=== PATIENT | male | born 2005 | race Caucasian/White ===

== ENCOUNTER 2025-06-11 22:05 | Inpatient (IN) | payer OTHER ==
[~2025-06-11] VITALS: Ht 188 cm; Wt 77.1 kg
[~2025-06-11 22:05] MED LIST: AMOX50SU PO; AZIT100SU PO; GUAI100SY PO
[2025-06-11 23:49] LABS: BASOPHILS ABSOLUTE AUTO 0.04 K/mm3 (0.00-0.23); BASOPHILS PERCENT AUTO 0 % (0-2); EOSINOPHILS ABSOLUTE AUTO 0.08 K/mm3 (0.00-0.68); EOSINOPHILS PERCENT AUTO 1 % (0-6); Hematocrit 42.9 % (37.0-53.0); Hemoglobin 15.2 g/dL (13.5-17.5); IMMATURE GRAN ABSOLUTE AUTO 0.04 K/mm3 (0.00-0.10); IMMATURE GRAN PERCENT AUTO 0 % (0-1); LYMPHOCYTES ABSOLUTE AUTO 1.66 K/mm3 (0.84-5.20); LYMPHOCYTES PERCENT AUTO 11 % (21-46); MONOCYTES ABSOLUTE AUTO 1.58 K/mm3 (0.16-1.47); MONOCYTES PERCENT AUTO 10 % (4-13); Mean Corpuscular HGB Conc 35.4 g/dL (31.5-36.5); Mean Corpuscular Volume 88 fL (80-100); NEUTROPHILS ABSOLUTE AUTO 11.81 K/mm3 (1.96-9.15); NEUTROPHILS PERCENT AUTO 78 % (41-73); NRBC ABSOLUTE 0.00 K/mm3 (0.00-0.02); NRBC Auto 0.0 /100 WBC (0.0-0.2); Platelet Count 330 K/mm3 (150-400); RDW Coefficient Variation 11.9 % (11.7-14.2); RDW Standard Deviation 38.8 fL (35.1-46.3)
[2025-06-12] VITALS (14 sets, daily range): BP systolic 91–135; BP diastolic 44–82
[2025-06-12 00:18] LABS: Alanine Aminotransfer (ALT/SGP 20.0 U/L (12-78); Albumin, Blood 4.0 g/dL (3.4-5.0); Albumin/Globulin Ratio 0.9 (0.8-1.8); Anion Gap 9.0 mmol/L (3-11); Aspartate Aminotrans (AST/SGOT 15.0 U/L (12-37); Bilirubin, Total 0.4 mg/dL (0.1-1.0); Blood Urea Nitrogen 11.0 mg/dL (8-24); CO2, Blood 25.0 mmol/L (21-32); Calcium, Blood 9.4 mg/dL (8.5-10.1); Chloride, Blood 106.0 mmol/L (98-108); Creatinine, Blood 0.76 mg/dL (0.60-1.20); Globulin, Blood 4.5 g/dL (2.2-4.0); Glucose, Blood 116.0 mg/dL (70-99); Potassium, Blood 3.3 mmol/L (3.5-5.5); Sodium, Blood 137.0 mmol/L (136-145); Total Protein, Blood 8.5 g/dL (6.4-8.2)
[2025-06-12 00:19] LABS: C-Reactive Protein, High Sens. 107.0 mg/L (0.000-3.000)
[2025-06-12] MEDS ORDERED: Morphine Sulfate 4 MG/1 ML Injection IV ONE (01:45)
[2025-06-12] MEDS ORDERED: Vancomycin (Pharmacy Consult) IV PRN (02:40)
[2025-06-12] MEDS ORDERED: CefTRIAXone Sodium 2,000 MG in NS 100 ML IV ONE (02:40)
[2025-06-12] MEDS ORDERED: Ondansetron HCl 2 MG / ML 2ML Vial IV PRN ×2 (03:10→08:45)
[2025-06-12] MEDS ORDERED: Morphine Sulfate 4 MG/1 ML Injection IV PRN ×3 (03:15→14:15)
[2025-06-12] MEDS ORDERED: FLU VACC TS2025-26(6MOS UP)/PF 45 MCG/0.5 ML SYRINGE IM SCH (03:15)
[2025-06-12] MEDS ORDERED: Vancomycin (Pharmacy Consult) IV SCH (03:15)
[2025-06-12] MEDS ORDERED: Naloxone HCl 0.4MG / ML 1ML Vial IV PRN (03:15)
[2025-06-12] MEDS ORDERED: NS KCL 40 mEq 1,000 ML IV SCH (06:00)
[2025-06-12] MEDS ORDERED: FentaNYL Citrate 50 MCG/ML 2 ML Injection ONE (07:29)
[2025-06-12] MEDS ORDERED: Midazolam HCl 1MG / ML 2ML Vial ONE (07:29)
[2025-06-12 07:48] LABS: BASOPHILS ABSOLUTE AUTO 0.03 K/mm3 (0.00-0.23); BASOPHILS PERCENT AUTO 0 % (0-2); EOSINOPHILS ABSOLUTE AUTO 0.02 K/mm3 (0.00-0.68); EOSINOPHILS PERCENT AUTO 0 % (0-6); Hematocrit 37.0 % (37.0-53.0); Hemoglobin 12.9 g/dL (13.5-17.5); IMMATURE GRAN ABSOLUTE AUTO 0.04 K/mm3 (0.00-0.10); IMMATURE GRAN PERCENT AUTO 0 % (0-1); LYMPHOCYTES ABSOLUTE AUTO 1.76 K/mm3 (0.84-5.20); LYMPHOCYTES PERCENT AUTO 13 % (21-46); MONOCYTES ABSOLUTE AUTO 1.30 K/mm3 (0.16-1.47); MONOCYTES PERCENT AUTO 10 % (4-13); Mean Corpuscular HGB Conc 34.9 g/dL (31.5-36.5); Mean Corpuscular Volume 90 fL (80-100); NEUTROPHILS ABSOLUTE AUTO 10.01 K/mm3 (1.96-9.15); NEUTROPHILS PERCENT AUTO 76 % (41-73); NRBC ABSOLUTE 0.00 K/mm3 (0.00-0.02); NRBC Auto 0.0 /100 WBC (0.0-0.2); Platelet Count 276 K/mm3 (150-400); RDW Coefficient Variation 12.0 % (11.7-14.2); RDW Standard Deviation 39.5 fL (35.1-46.3)
[2025-06-12] MEDS ORDERED: Bupivacaine 0.5% HCl 5 MG/ML 30MLVIAL ONE (08:02)
[2025-06-12] MEDS ORDERED: EPINEPhrine HCl 1 MG / ML 30ML Vial ONE (08:02)
[2025-06-12 08:03] LABS: Prothrombin Time Results 11.2 Sec (9.7-11.5)
[2025-06-12 08:09] LABS: Alanine Aminotransfer (ALT/SGP 17.0 U/L (12-78); Albumin, Blood 3.2 g/dL (3.4-5.0); Albumin/Globulin Ratio 0.9 (0.8-1.8); Anion Gap 9.0 mmol/L (3-11); Aspartate Aminotrans (AST/SGOT 14.0 U/L (12-37); Bilirubin, Total 0.6 mg/dL (0.1-1.0); Blood Urea Nitrogen 6.0 mg/dL (8-24); CO2, Blood 26.0 mmol/L (21-32); Calcium, Blood 8.9 mg/dL (8.5-10.1); Chloride, Blood 106.0 mmol/L (98-108); Creatinine, Blood 0.79 mg/dL (0.60-1.20); Globulin, Blood 3.7 g/dL (2.2-4.0); Glucose, Blood 110.0 mg/dL (70-99); Magnesium, Blood 1.8 mg/dL (1.6-2.4); Potassium, Blood 3.5 mmol/L (3.5-5.5); Sodium, Blood 137.0 mmol/L (136-145); Total Protein, Blood 6.9 g/dL (6.4-8.2)
[2025-06-12] MEDS ORDERED: Ondansetron HCl 2 MG / ML 2ML Vial ONE (08:34)
[2025-06-12] MEDS ORDERED: Dexamethasone Sod Phos 10 MG/ML 1ML VIAL ONE (08:34)
[2025-06-12] MEDS ORDERED: FentaNYL Citrate 50 MCG/ML 2 ML Injection IV PRN ×2 (08:45)
[2025-06-12] MEDS ORDERED: HYDROmorphone HCl/Pf 1MG SYR IV PRN ×2 (08:45)
[2025-06-12] MEDS ORDERED: Ketorolac Tromethamine 30mg Vial ONE (08:45)
[2025-06-12] MEDS ORDERED: Phenylephrine HCl 100 MCG/ML-NS 10MLSYR (1MG/10ML) ONE (08:46)
[2025-06-12] MEDS ORDERED: Lactobacil 2-S.Thermo-Bifido 1 1 Cap PO SCH (09:00)
[2025-06-12] MEDS ORDERED: NS 250 ML IV PRN (12:00)
--- NOTE | 2025-06-12 18:41 | NUR ---
SHIFT SUMMARY: PATIENT HAD I&D DONE TO R KNEE TODAY BY DR. WETZEL (ORTHO), SENSATION INTACT, ALLYN WRAP DRESSING C/D/I. PATIENT MEDICATED FOR PAIN PER EMAR c GOOD EFFECT. PATIENT HAS GOOD APPETITE, CONTINENT OF BLADDER AND USES URINAL. PATIENT RECEIVED IV ABX PER ORDER. VITAL SIGNS REVIEWED. PATIENT A/OX4, PLEASANT AND COOPERATIVE c CARE, CALLS APPROPRIATELY AND MAKE NEEDS KNOWN. BED IN LOWEST POSITION. CALL LIGHT IN REACH.
[2025-06-13 03:05] LABS: BASOPHILS ABSOLUTE AUTO 0.03 K/mm3 (0.00-0.23); BASOPHILS PERCENT AUTO 0 % (0-2); EOSINOPHILS ABSOLUTE AUTO 0.05 K/mm3 (0.00-0.68); EOSINOPHILS PERCENT AUTO 0 % (0-6); Hematocrit 34.6 % (37.0-53.0); Hemoglobin 12.0 g/dL (13.5-17.5); IMMATURE GRAN ABSOLUTE AUTO 0.04 K/mm3 (0.00-0.10); IMMATURE GRAN PERCENT AUTO 0 % (0-1); LYMPHOCYTES ABSOLUTE AUTO 1.90 K/mm3 (0.84-5.20); LYMPHOCYTES PERCENT AUTO 16 % (21-46); MONOCYTES ABSOLUTE AUTO 1.15 K/mm3 (0.16-1.47); MONOCYTES PERCENT AUTO 10 % (4-13); Mean Corpuscular HGB Conc 34.7 g/dL (31.5-36.5); Mean Corpuscular Volume 90 fL (80-100); NEUTROPHILS ABSOLUTE AUTO 8.82 K/mm3 (1.96-9.15); NEUTROPHILS PERCENT AUTO 74 % (41-73); NRBC ABSOLUTE 0.00 K/mm3 (0.00-0.02); NRBC Auto 0.0 /100 WBC (0.0-0.2); Platelet Count 240 K/mm3 (150-400); RDW Coefficient Variation 11.9 % (11.7-14.2); RDW Standard Deviation 39.0 fL (35.1-46.3)
[2025-06-13 03:10] VITALS: BP 114/65
[2025-06-13 03:30] LABS: Alanine Aminotransfer (ALT/SGP 15 U/L (12-78); Albumin, Blood 2.9 g/dL (3.4-5.0); Albumin/Globulin Ratio 0.8 (0.8-1.8); Anion Gap 7 mmol/L (3-11); Aspartate Aminotrans (AST/SGOT 10 U/L (12-37); Bilirubin, Total 0.4 mg/dL (0.1-1.0); Blood Urea Nitrogen 6 mg/dL (8-24); CO2, Blood 27 mmol/L (21-32); Calcium, Blood 8.7 mg/dL (8.5-10.1); Chloride, Blood 105 mmol/L (98-108); Creatinine, Blood 0.60 mg/dL (0.60-1.20); Globulin, Blood 3.7 g/dL (2.2-4.0); Glucose, Blood 111 mg/dL (70-99); Potassium, Blood 4.0 mmol/L (3.5-5.5); Sodium, Blood 135 mmol/L (136-145); Total Protein, Blood 6.6 g/dL (6.4-8.2); Vancomycin, Trough 11.5 ug/mL (5.0-10.0)
--- NOTE | 2025-06-13 06:23 | NUR ---
SHIFT SUMMARY: PT AOX4, IND WITH THE URINAL, CALLS APPROPRAITELY AND ABLE TO MAKE NEEDS KNOWN. PT COMPLAINTS A LOT OF PAIN, MEDICATED PER EMR. PT TOLERATING MEDICATIONS WELL. VERY ANXIOUS ABOUT LOOSING LEG/ NOT BEING ABLE TO GO TO WORK. EDUCATED A BIT ON CONDITION AND SEEMS TO BE DOING BETTER. NO ACUTE EVENTS OVERNIGHT. PT IN BED RESTING, BED IN LOWEST POSITION, CALL LIGHT IN REACH. CONTINUING CARE.
[2025-06-13 07:25] VITALS: BP 119/88
[2025-06-13] MEDS ORDERED: CefTRIAXone Sodium 2,000 MG in NS 100 ML IV SCH (09:00)
[2025-06-13 15:27] VITALS: BP 133/64
--- NOTE | 2025-06-13 17:52 | NUR ---
PT PAIN BETTER THIS AM. INCREASED THIS AFT. DR STARTED DILAUDID, STARTED 1 MG PO. PT STATES NOT MUCH EFFECT. WILL UP TO [address] ORDER. GIRLFRIEND IN TO SEE TODAY. ALSO MOTHER IN TO SEE TODAY. VERY MIN SMALL BLOOD SPOT ON SIDE KNEE. ICED FOR PAIN RELEIF. PT UP TO BATHROOM WITH FWW. KAUR WELL. RT LEG STILL RED AROUND KNEE AREA. SOME SWELLING, NOT MUCH CHANGE NOTED THIS SHIFT. NO OTHER NEW CONCERNS NOTED. BED IN LOW POSITIION, CALL LITE IN REACH, CALLS APPROP
[2025-06-13 19:55] VITALS: BP 127/52
[2025-06-14 03:11] LABS: BASOPHILS ABSOLUTE AUTO 0.05 K/mm3 (0.00-0.23); BASOPHILS PERCENT AUTO 1 % (0-2); EOSINOPHILS ABSOLUTE AUTO 0.12 K/mm3 (0.00-0.68); EOSINOPHILS PERCENT AUTO 1 % (0-6); Hematocrit 39.1 % (37.0-53.0); Hemoglobin 13.5 g/dL (13.5-17.5); IMMATURE GRAN ABSOLUTE AUTO 0.05 K/mm3 (0.00-0.10); IMMATURE GRAN PERCENT AUTO 1 % (0-1); LYMPHOCYTES ABSOLUTE AUTO 2.20 K/mm3 (0.84-5.20); LYMPHOCYTES PERCENT AUTO 21 % (21-46); MONOCYTES ABSOLUTE AUTO 0.99 K/mm3 (0.16-1.47); MONOCYTES PERCENT AUTO 9 % (4-13); Mean Corpuscular HGB Conc 34.5 g/dL (31.5-36.5); Mean Corpuscular Volume 90 fL (80-100); NEUTROPHILS ABSOLUTE AUTO 7.18 K/mm3 (1.96-9.15); NEUTROPHILS PERCENT AUTO 68 % (41-73); NRBC ABSOLUTE 0.00 K/mm3 (0.00-0.02); NRBC Auto 0.0 /100 WBC (0.0-0.2); Platelet Count 297 K/mm3 (150-400); RDW Coefficient Variation 11.8 % (11.7-14.2); RDW Standard Deviation 39.1 fL (35.1-46.3)
[2025-06-14 03:25] VITALS: BP 138/83
[2025-06-14 03:32] LABS: Alanine Aminotransfer (ALT/SGP 20 U/L (12-78); Albumin, Blood 3.1 g/dL (3.4-5.0); Albumin/Globulin Ratio 0.7 (0.8-1.8); Anion Gap 8 mmol/L (3-11); Aspartate Aminotrans (AST/SGOT 17 U/L (12-37); Bilirubin, Total 0.3 mg/dL (0.1-1.0); Blood Urea Nitrogen 7 mg/dL (8-24); CO2, Blood 26 mmol/L (21-32); Calcium, Blood 9.2 mg/dL (8.5-10.1); Chloride, Blood 104 mmol/L (98-108); Creatinine, Blood 0.73 mg/dL (0.60-1.20); Globulin, Blood 4.3 g/dL (2.2-4.0); Glucose, Blood 88 mg/dL (70-99); Potassium, Blood 4.1 mmol/L (3.5-5.5); Sodium, Blood 134 mmol/L (136-145); Total Protein, Blood 7.4 g/dL (6.4-8.2); Vancomycin, Trough 12.7 ug/mL (5.0-10.0)
--- NOTE | 2025-06-14 05:38 | NUR ---
SHIFT SUMMARY: PT AOX4, SBA/1PA WITH FWW TO THE BATHROOM. IS ABLE TO MOVE THE LEG TODAY, STATES BIG IMPROVEMENT IN PAIN MANAGEMENT WITH OXY AND TYLENOL GIVEN AT THE SAME TIME. NEEDED THE MORPHINE ONLY FOR SOME BREAKTHROUGH PAIN AFTER AMBULATING TO THE BATHROOM. PT TOLERATING MEDICATIONS WELL. NO ACUTE OVERNIGHT EVENTS. EAGER TO GO HOME AND ANXIOUS ABOUT PROGNOSIS DESPITE EDUCATION. STILL PLEASANT AND COOPERATIVE IN CARE. PT IN BED RESTING, BED IN LOWEST POSITION, CALL LIGHT IN REACH. CONTINUING CARE.
[2025-06-14] MEDS ORDERED: MONDOXYNE NL100 MG PO (09:29)
[2025-06-14] MEDS ORDERED: CEPH500 PO (09:29)
[2025-06-14] MEDS ORDERED: MASOPHEN325 M3 PO (13:38)
[2025-06-14] MEDS ORDERED: OXYC5 PO (13:39)
[2025-06-14] MEDS ORDERED: IBUP800 PO (13:39)
[2025-06-14] MEDS ORDERED: SULTRIDS PO (13:42)
--- NOTE | 2025-06-14 14:30 | NUR ---
SHIFT SUMMARY AND DISCHARGE PATIENT ALERT AND INTERACTIVE. PATIENT INDEPENDENT AT BEDSIDE. USING URINAL TO VOID. PATIENT MEDICATED FOR PAIN PER NOV. WOUND CARE PROVIDED TO R KNEE WOUND. PATIENT EDUCATED ON WOUND CARE AND WHAT TO REPORT TO PROVIDERS. DISCHARGE INSTRUCTIONS REVIEWED WITH PATIENT. WALKER DELIVERED PRIOR TO DISCHARGE AND SENT HOME WITH PATIENT. ROOM CHECK DONE PRIOR TO DISCHARGE AND BELONGINGS SENT HOME WITH PATIENT. HARD SCRIPT FOR PAIN MEDS IN DISCHARGE FOLDER AND SHOWN TO PATIENT.
== END 2025-06-14 15:30 | disposition home or self-care (01) | DRG 854 ==
LOC: ER 22:05 → MEDS 06-12 03:03 → ERHOLD 06-12 03:03 → MEDS 06-12 10:17
PROVIDERS: Orthopaedic Surgery; Student in an Organized Health Care Education/Training Program; ADMIT Student in an Organized Health Care Education/Training Program
PROC: 0S9C3ZZ Drainage of Right Knee Joint, Percutaneous Approach (ICD-10-PCS; 2025-06-12)
PROC: 3E03329 Introduction of Other Anti-infective into Peripheral Vein, Percutaneous Approach (ICD-10-PCS; 2025-06-12)
PROC: 0MBN0ZZ Excision of Right Knee Bursa and Ligament, Open Approach (ICD-10-PCS; principal; 2025-06-12 08:30)
DX: A41.02 Sepsis due to Methicillin resistant Staphylococcus aureus (principal); L02.415 Cutaneous abscess of right lower limb; L03.116 Cellulitis of left lower limb; M71.161 Other infective bursitis, right knee; D64.89 Other specified anemias; E87.6 Hypokalemia; R74.02 Elevation of levels of lactic acid dehydrogenase [LDH]; Z88.0 Allergy status to penicillin
CPT/HCPCS: 36415; 73562-RT; 80053; 80202; 83605; 83735; 85025; 85610; 85651; 86141; 87070; 87077; 87147; 87186; 87205; 94762; 96361; 96374; 99284-25; A9270; J0165; J0696; J1100; J1885; J2250; J2270; J2371; J2405; J2704; J3010; J3373; J3480; J7040; J7050; J7120